=== PATIENT | male | born 1990 | race Caucasian/White ===

== ENCOUNTER → 2019-01-20 | Outpatient (REF) | payer OTHER | LOC: M SFHCLERA 11:57 | PROVIDERS: ATTEND Nurse Practitioner Family | DX: J02.9 Acute pharyngitis, unspecified (principal) ==

== ENCOUNTER → 2020-12-09 | Outpatient (CLI) | payer OTHER | LOC: M LABSMTC 10:58 | PROVIDERS: ATTEND Anesthesiology | DX: Z01.818 Encounter for other preprocedural examination (principal); Z20.822 Contact with and (suspected) exposure to COVID-19 ==

== ENCOUNTER 2020-12-14 10:39 | Day surgery (SDC) | payer OTHER ==
[~2020-12-14] VITALS: Ht 177.8 cm; Wt 90.2 kg
[~2020-12-14 10:39] MED LIST: CHLO25TA PO; LIDOCAINE W/EPINEPHRINE 1% 20ML VIAL As Ordered ONE; LISI20TA33 PO; METHYLENE BLUE 0.5% (5MG/ML) 10 ML AMP (PROVAYBLUE) As Ordered ONE
[2020-12-14] MEDS ORDERED: LR 1,000 ML IV ONE (11:15)
[2020-12-14] MEDS ORDERED: MIDAZOLAM INJ 2MG/2ML VIAL (J2250 PER 1MG) As Ordered ONE (12:49)
[2020-12-14] MEDS ORDERED: ROCURONIUM BROMIDE 50 MG/5 ML VIAL As Ordered ONE ×2 (12:50→14:59)
[2020-12-14] MEDS ORDERED: propofoL 200 MG/20 ML VIAL As Ordered ONE ×2 (12:50→14:59)
[2020-12-14] MEDS ORDERED: fentaNYL 100 MCG/2 ML INJECTION (J3010) As Ordered ONE ×2 (12:50→15:55)
[2020-12-14] MEDS ORDERED: LIDOCAINE 2% 100MG/5ML SDV (FOR ANES.) As Ordered ONE (12:50)
[2020-12-14] MEDS ORDERED: dexameTHASONE 4 MG/ML 1ML VIAL (J1100 PER 1MG) As Ordered ONE (12:50)
[2020-12-14] MEDS ORDERED: SUGAMMADEX SODIUM 500 MG/5 ML VIAL (BRIDION) As Ordered ONE ×2 (12:53→13:08)
[2020-12-14] MEDS ORDERED: ONDANSETRON 4MG/2ML VIAL As Ordered ONE (12:58)
[2020-12-14] MEDS ORDERED: ACETAMINOPHEN 1000MG 100ML IV BTL (OFIRMEV) (J0131 PER 10MG) As Ordered ONE (13:06)
[2020-12-14] MEDS ORDERED: BUPIVACAINE HCL 0.5% 10ML VIAL As Ordered ONE (13:34)
[2020-12-14] MEDS ORDERED: OXYMETAZOLINE 0.05% NASAL SPRAY (AFRIN) XX ONE (15:12)
[2020-12-14] MEDS: fentaNYL 100 MCG/2 ML INJECTION (J3010) IV PRN ×4 (15:57→16:22)
[2020-12-14] MEDS ORDERED: oxyCODONE 5MG TAB PO PRN (16:00)
[2020-12-14] MEDS ORDERED: ONDANSETRON 4MG/2ML VIAL IV PRN (16:00)
[2020-12-14] MEDS ORDERED: LR 1,000 ML IV SCH (16:00)
[2020-12-14] MEDS ORDERED: PERCOCET 5MG/325MG TAB PO PRN (16:10)
[2020-12-14] MEDS ORDERED: IBUPROFEN 800 MG TAB PO PRN (16:10)
[2020-12-14 17:49] VITALS: BP 142/86
--- NOTE | 2020-12-15 10:44 | RO ---
OPERATIVE NOTE DATE OF OPERATION: 12/14/2020 PREOPERATIVE DIAGNOSES: Obstructive sleep apnea syndrome, deviated septum. POSTOPERATIVE DIAGNOSES: Obstructive sleep apnea syndrome, deviated septum. PROCEDURE: Uvulopalatopharyngoplasty, tonsillectomy and septoplasty. SURGEON: Marc Tai MD MORPHOLOGIST: ANESTHESIA: INDICATIONS: This is a 30-year-old who presents with history of obstructive sleep apnea syndrome, hypertrophic tonsils and inability to use CPAP. PROCEDURE: Satisfactory general endotracheal anesthesia was administered. The nose was prepared for surgery by placing cotton-soaked pledgets with Afrin solution into the nasal cavity with 1% Xylocaine with 1:100,000 epinephrine injected into the nasal septum. While this was curing, the oral surgery was performed. The patient was placed in Trendelenburg position, a Aixa-Liborio gag for his tonsillectomy. He had markedly hypertrophic tonsils. The tonsils were removed using cutting cautery. An incision was made on the anterior pillar 3 mm from its edge. The capsule of the tonsil was identified. Using a combination of cautery and blunt dissection, this large tonsil was dissected free of the posterior constrictor following an avascular plane. However, there was a plexus of pharyngeal veins which was entered which led to fairly brisk bleeding. This was oversewn successfully with two 4-0 Vicryl [id number]-op-afdwg sutures. The posterior pillar was preserved in its entirety. Once the capsule of the tonsil was suspended only at the inferior pole, coagulation was used to amputate any small vessels encountered inferiorly at the inferior tonsillar pole. This was cauterized with suction cautery. Then a 4-0 Vicryl [id number]-uz-[id number] suture was placed in the vicinity to oversew. This nicely controlled any bleeding while the left tonsil was removed in a similar fashion. Next, the uvula was grasped with a forcep directed anteriorly and a dimple created across the soft palate was used as the line of demarcation for incising the soft palpate anteriorly. The incision started from one anterior pillar to the opposite incision on the other anterior pillar. As the palate was divided, the incision was beveled so that there would be more mucosa present on the posterior aspect of the soft palate than was anterior. Once this was done, small vessels in the soft tissue beneath the mucosa of the soft palate were coagulated with suction cautery. Reconstruction was done using 4-0 Vicryl suture to approximate the mucosa on the posterior side of the soft palate to the anterior side. To break the spring of the constrictor muscle, Metzenbaum scissors were used to raise a posteriorly based flap, the constrictor muscle from the posterior tonsillar pillar. This allowed it to be mobilized anteriorly with less tension. Reconstruction was completed by taking the posterior mucosa of the posterior pillar and approximating it to the anterior pillar mucosa. This created a large archway of sutures from the tongue base to the opposite side. 1/2% Marcaine was injected to the surgical site. The gag was released for three minutes. There was no bleeding and the throat pack was placed while nasal surgery was performed. A Zohaib incision was made on the left side of the nose. A mucoperichondrial flap and envelope was created on the left side of the nasal septum and carried down to the junction of the bony and cartilaginous septum. This was then with an elevator, and an envelope was then created on the right side of the septum. A Bill scissors was used to make a cut high in the perpendicular plate in the midportion of the vomer, and a central segment of the bony septum was resected. Next, with the round knife on the Hockley elevator, a strip of cartilage was resected from the floor of the nose, mobilizing the quadrilateral cartilage and creating a swinging door. Then, a central segment of cartilaginous septum was resected, preserving a 1 cm dorsal and caudal strut. Double-action rongeur was used to take down deflected portions of the perpendicular plate, as well. Finally, the maxillary crest spur was taken down after elevating mucoperiosteum off both sides of it with a chisel. A segment of the resected cartilage was morselized and placed back into the septal envelope. The incision was closed using an interrupted #5-0 chromic suture. Then, a #4-0 plain suture was placed in a phor-gsa-frava fashion through the two leaves of mucoperichondrium to appose them. On completing the septal surgery, Culver splints were placed in the nose and sewn to the columella with #2-0 Prolene suture. The pharyngeal pack was then removed and the throat suctioned. The patient was awakened, extubated, and sent to recovery in satisfactory condition. He will be discharged home on Tylox for pain to be alternated with high standard Motrin 800 mg t.i.d. He will be seen in the office in one week.
== END 2020-12-14 17:59 | disposition home or self-care (01) ==
LOC: M SDC 10:39
PROVIDERS: ATTEND Specialist
DX: J34.2 Deviated nasal septum (principal); G47.33 Obstructive sleep apnea (adult) (pediatric); I10 Essential (primary) hypertension; F17.290 Nicotine dependence, other tobacco product, uncomplicated; Z79.899 Other long term (current) drug therapy
CPT/HCPCS: 30520; 42145; 88300; 88302; 88305; J0131; J1100; J2250; J2405; J3010; Q9968

== ENCOUNTER 2021-04-16 18:06 | Emergency (ER) | payer OTHER ==
[~2021-04-16] VITALS: Ht 177.8 cm; Wt 84.1 kg
[~2021-04-16 18:06] MED LIST changes: -LIDOCAINE W/EPINEPHRINE 1% 20ML VIAL As Ordered ONE; -METHYLENE BLUE 0.5% (5MG/ML) 10 ML AMP (PROVAYBLUE) As Ordered ONE
[2021-04-16] MEDS ORDERED: SILD50TA2 PO (18:38)
[2021-04-16 18:50] VITALS: BP 129/79
[2021-04-16 19:05] LABS: BASO % 0.1 % (0.0-1.0); EOS # 0.1 10^3/uL (0.0-0.5); HEMATOCRIT 39.5 % (42.0-52.0); HEMOGLOBIN 13.7 g/dl (13.5-17.5); LYMPH # 2.5 10^3/uL (1.5-5.0); LYMPH % 23.8 % (24.0-44.0); MEAN CORPUSCULAR HEMOGLOBIN 29.5 pg (27.0-33.0); MEAN CORPUSCULAR HGB CONC 34.7 g/dl (32.0-36.5); MEAN CORPUSCULAR VOLUME 84.9 fl (80.0-96.0); MONO # 0.9 10^3/uL (0.0-0.8); MONO % 8.2 % (2.0-8.0); NEUTROPHILS # 6.9 10^3/uL (1.5-8.5); NEUTROPHILS % 66.5 % (36.0-66.0); PLATELET COUNT, AUTOMATED 350 10^3/uL (150-450); RED BLOOD COUNT 4.65 10^6/uL (4.30-6.10); WHITE BLOOD COUNT 10.4 10^3/uL (4.0-10.0)
[2021-04-16 19:54] LABS: ALBUMIN 3.9 GM/DL (3.2-5.2); ALT/SGPT 24 U/L (12-78); BILIRUBIN,DIRECT 0.1 MG/DL (0.0-0.2); BILIRUBIN,TOTAL 0.5 MG/DL (0.2-1.0); BLOOD UREA NITROGEN 19 MG/DL (7-18); CALCIUM LEVEL 9.5 MG/DL (8.5-10.1); CARBON DIOXIDE LEVEL 25 MEQ/L (21-32); CHLORIDE LEVEL 105 MEQ/L (98-107); CK-MB VALUE MASS 1.1 NG/ML (<3.6); CPK CREATINE PHOSPHOKINASE 322 U/L (39-308); CREATININE FOR GFR 1.19 MG/DL (0.70-1.30); FREE T4 1.42 NG/DL (0.76-1.46); GLOMERULAR FILTRATION RATE > 60.0 (>60); GLUCOSE, FASTING 92 MG/DL (70-100); MB/CK RELATIVE INDEX 0.34 (< OR =4); POTASSIUM SERUM 2.8 MEQ/L (3.5-5.1); SODIUM LEVEL 137 MEQ/L (136-145); THYROID STIMULATING HORMONE 0.791 uIU/ML (0.358-3.740); TOTAL PROTEIN 7.3 GM/DL (6.4-8.2); TROPONIN I < 0.02 NG/ML (< 0.10)
--- NOTE | 2021-04-17 06:22 | ECGEPIP ---
[facility] - ED Test Date: 2021-04-16 Pat Name: JOSE C HUANG Department: Room: - Gender: Male [place] Psychiatrist: ROOSEVELT : 1990 Requested By: ESTRELLITA Ngo Order Number: [id number] Reading MD: Jose C Lim Measurements Intervals Mize Rate: 61 P: 45 UT: 150 QRS: 42 QRSD: 106 T: 16 QT: 430 QTc: 432 Interpretive Statements Sinus rhythm with premature atrial complexes Comparison tracing not on file Electronically Signed on 04-17-2021 6:21:58 EDT by Jose C Lim
== END 2021-04-16 19:40 | disposition left against medical advice (07) ==
LOC: M ED 18:06
DX: F41.0 Panic disorder [episodic paroxysmal anxiety] (principal); F17.200 Nicotine dependence, unspecified, uncomplicated; Z79.899 Other long term (current) drug therapy